=== PATIENT | female | born 1995 | race Two or more races ===

== ENCOUNTER 2017-11-05 07:41 | Emergency (ER) | payer OTHER ==
[~2017-11-05] VITALS: Ht 160 cm; Wt 56.7 kg
[2017-11-05 07:46] VITALS: Ht 160 cm; Wt 56.7 kg
[2017-11-05 08:41] LABS: CALCIUM 8.5 mg/dL (8.5-10.1); CHLORIDE SERUM 106 mmol/L (98-107); CREATININE SERUM 0.5 mg/dL (0.6-1.0); GFR1 > 60 mL/min; GLUCOSE SERUM 97 mg/dL (74-106); POTASSIUM SERUM 3.7 mmol/L (3.5-5.1); SODIUM SERUM 141 mmol/L (136-145)
[2017-11-05 10:00] LABS: AMPHETAMINE QUAL UR NONE DETECTED (NEG <=1000)
[2017-11-05 10:52] VITALS: BP 115/75
== END 2017-11-05 10:52 | disposition home or self-care (01) ==
LOC: ED 07:41
PROVIDERS: Emergency Medicine
DX: R56.9 Unspecified convulsions (principal)
CPT/HCPCS: 36415

== ENCOUNTER 2018-08-20 07:24 | Emergency (ER) | payer OTHER ==
[~2018-08-20] VITALS: Ht 160 cm; Wt 63.5 kg
[2018-08-20 07:33] VITALS: Ht 160 cm; Wt 63.5 kg
[2018-08-20 07:57] LABS: BASOPHIL % 0.5 % (0-2); PLATELET COUNT 250 x10^3mcL (130-400)
[2018-08-20 07:58] LABS: RED CELL DISTRIBUTION WIDTH 16.5 % (11.5-14.5)
[2018-08-20 08:08] LABS: CALCIUM 8.8 mg/dL (8.5-10.1); CARBON DIOXIDE 24.8 mmol/L (21-32); CHLORIDE SERUM 104 mmol/L (98-107); CREATININE SERUM 0.7 mg/dL (0.6-1.0); GFR1 > 60 mL/min; GLUCOSE SERUM 95 mg/dL (74-106); POTASSIUM SERUM 3.3 mmol/L (3.5-5.1); SODIUM SERUM 139 mmol/L (136-145)
[2018-08-20 08:13] LABS: ALBUMIN 3.8 g/dL (3.4-5.0); ALKALINE PHOSPHATASE 88 U/L (46-116); ALT/SGPT 23 U/L (14-59); AST/SGOT 16 U/L (15-37); BILIRUBIN TOTAL 0.3 mg/dL (0.20-1.00); MAGNESIUM 1.6 mg/dL (1.8-2.4); TOTAL PROTEIN, SERUM 7.5 g/dL (6.4-8.2)
[2018-08-20 10:32] VITALS: BP 102/55
== END 2018-08-20 10:32 | disposition home or self-care (01) ==
LOC: ED 07:24
PROVIDERS: Emergency Medicine
DX: R56.9 Unspecified convulsions (principal); E87.6 Hypokalemia; E83.42 Hypomagnesemia
CPT/HCPCS: J3475; J7030

== ENCOUNTER 2019-09-23 09:16 | Emergency (ER) | payer OTHER ==
[~2019-09-23] VITALS: Ht 160 cm; Wt 59.0 kg
[2019-09-23 09:23] VITALS: Ht 160 cm; Wt 59.0 kg
[2019-09-23 09:46] LABS: BASOPHIL % 0.5 % (0-2); PLATELET COUNT 195 x10^3mcL (130-400)
[2019-09-23 10:12] LABS: ALBUMIN 3.4 g/dL (3.4-5.0); ALKALINE PHOSPHATASE 65 U/L (46-116); ALT/SGPT 23 U/L (14-59); AST/SGOT 15 U/L (15-37); BILIRUBIN TOTAL 0.3 mg/dL (0.20-1.00); CALCIUM 7.7 mg/dL (8.5-10.1); CARBON DIOXIDE 20.9 mmol/L (21-32); CHLORIDE SERUM 109 mmol/L (98-107); CREATININE SERUM 0.6 mg/dL (0.6-1.0); GFR1 > 60 mL/min; GLUCOSE SERUM 92 mg/dL (74-106); MAGNESIUM 1.7 mg/dL (1.8-2.4); POTASSIUM SERUM 4.1 mmol/L (3.5-5.1); RED CELL DISTRIBUTION WIDTH 16.8 % (11.5-14.5); SODIUM SERUM 141 mmol/L (136-145); TOTAL PROTEIN, SERUM 6.6 g/dL (6.4-8.2)
[2019-09-23 11:17] LABS: microscopic required? YES; urine erythrocyte TRACE (NEGATIVE)
[2019-09-23 12:32] LABS: AMPHETAMINE QUAL UR NONE DETECTED (See below)
[2019-09-23 13:30] VITALS: BP 101/87
== END 2019-09-23 13:30 | disposition home or self-care (01) ==
LOC: ED 09:16
PROVIDERS: Emergency Medicine
DX: S01.552A Open bite of oral cavity, initial encounter (principal); G40.409 Other generalized epilepsy and epileptic syndromes, not intractable, without status epilepticus; W64.XXXA Exposure to other animate mechanical forces, initial encounter; Y93.89 Activity, other specified; Y92.89 Other specified places as the place of occurrence of the external cause; Y99.8 Other external cause status
CPT/HCPCS: 36415; 82962; G0480